=== PATIENT | female | born 1955 | race Caucasian/White ===

== ENCOUNTER 2023-09-04 12:53 | Emergency (ER) | payer MEDICARE, BC, SELFPAY ==
[2023-09-04 12:59] VITALS: BP 160/91
[2023-09-04 13:31] VITALS: BMI 24.9
[2023-09-04 14:30] VITALS: BP 147/98
[2023-09-04 14:35] VITALS: BP 147/98
--- NOTE | 2023-09-04 14:41 | ED.MUSCINJ ---
HPI-Injury
General
Chief Complaint: Musculo-Skeletal Complaint
Source: patient
Exam Limitations: none
Time Seen by Provider: 09/04/23 13:53
Travel History
Have you had any contact with someone who has COVID-19?: No
Do you have any symptoms of coronavirus? Fever > 100 degrees, chills, cough, shortness of breath, sore throat, loss of taste or smell, muscle aches, or headache?: No
History of Present Illness-Injury
Initial Injury comments:
68-year-old female presents complaining of right knee pain starting yesterday. She was carrying groceries into the house and twisted her knee and felt a pop. She complains of pain along the anterior and medial aspect of the knee. No giving way no
catching or locking. She is ambulatory since then. No other complaints at this time
Past History
Past History
ED Past Medical History: None
ED Past Surgical History: None
Social History
Tobacco: Non-smoker
Alcohol: None
Drug: None
Living: with family
Phy Exam
Physical Exam
Physical Exam:
General: Well-appearing female no acute respiratory distress
Musculoskeletal exam: Right knee slightly tender anterior medially without effusion full flexion full extension. Able to bear weight able to straight leg raise against gravity knee stable to ligament exam
Skin is intact without laceration
Injury Course
Orders/Labs/Results
Orders:
Orders
09/04/23 13:05
CR Knee- Right 4 Or More View* Urgent
Comment:
Reason For Exam: right knee pain
MDM/Problems Addressed
Differential Diagnosis Includes:
X-rays right knee ordered through triage which are negative for acute bony abnormality. Patient has right knee pain after to suspect underlying sprain or strain. Discussed knee immobilizer but not indicated at this point as she is ambulatory.
Recommended anti-inflammatories and orthopedic follow-up
*Critical Care Note
Total Time (30-74mins, 75-104mins- exclusive of procedures): Not Applicable
ED Attending Note
-
Portions of this chart may have been created with voice recognition software.� Occasional wrong word or��sound alike� substitutions may have occurred due to the inherent limitations of voice recognition software.
Discharge Plan
Departure
Patient Disposition: Home (Routine Discharge)
Patient with high blood pressure during this ER visit?: No
Discharge Problem:
Knee sprain
Instructions: Muscle and Bone Pain (DC)
Prescriptions:
No Action
clindamycin HCl [Cleocin HCl] 300 MG capsule
300 mg PO Q6 Qty: 20 0RF
Referrals:
Lele Jasso MD [Active] -
Harley Anne MD [Family Provider] -
Activity Restrictions/Additional Instructions:
Rest. Continue with ibuprofen. Please follow-up with orthopedics. Return if worse otherwise
Interventions
Interventions:
*Risk Screen - Suicide Last Done: 09/04/23 13:28
*General Assessment Last Done: 09/04/23 13:27
*Neglect/Abuse Screening Last Done: 09/04/23 13:28
ED- Fall Risk Assessment Last Done: 09/04/23 13:33
*ED COVID-19 Vaccine History Last Done: 09/04/23 13:26
*Nursing Disposition Last Done: 09/04/23 14:35
ED-Musculoskeletal Assessment Last Done: 09/04/23 13:24
== END 2023-09-04 15:10 | disposition home or self-care (01) ==
LOC: EMR 12:53
PROVIDERS: EMERGENCY PHYSICIAN Emergency Medicine; FAMILY PHYSICIAN Family Medicine
DX: S83.91XA Sprain of unspecified site of right knee, initial encounter (principal); X50.1XXA Overexertion from prolonged static or awkward postures, initial encounter
CPT/HCPCS: 99283; 73564

== ENCOUNTER → 2025-03-30 13:16 | Outpatient (REF) | payer MEDICARE, BC, SELFPAY | LOC: HWRAD 13:16 | PROVIDERS: ATTENDING PHYSICIAN Podiatrist Foot & Ankle Surgery; FAMILY PHYSICIAN Family Medicine | DX: M79.671 Pain in right foot (principal); M79.672 Pain in left foot | CPT/HCPCS: 73630 ==